=== PATIENT | female | born 1985 | race Asian ===

== ENCOUNTER 2017-11-06 16:29 | Outpatient (CLI) | payer OTHER | END 2017-11-06 16:30 | LOC: LAB.WCP 16:29 | PROVIDERS: ATTEND Physician Assistant | DX: Z28.3 Underimmunization status (principal) | CPT/HCPCS: 36415; 86735; 86762; 86765; 86787 ==

== ENCOUNTER 2017-11-12 09:11 | Outpatient (CLI) | payer OTHER | END 2017-11-12 09:12 | disposition home or self-care (01) | LOC: DI 09:11 | PROVIDERS: ATTEND Physician Assistant | DX: R07.89 Other chest pain (principal) | CPT/HCPCS: 93306 ==